=== PATIENT | male | born 1940 | race Caucasian/White ===

== ENCOUNTER 2019-05-27 12:49 | Outpatient (CLI) | payer OTHER | END 2019-05-27 23:59 | disposition home or self-care (01) | LOC: STAR 12:49 → RAD 23:59 | PROVIDERS: ATTEND Neurological Surgery | DX: Z01.818 Encounter for other preprocedural examination (principal); S33.140A Subluxation of L4/L5 lumbar vertebra, initial encounter; M54.17 Radiculopathy, lumbosacral region; M54.16 Radiculopathy, lumbar region; M41.84 Other forms of scoliosis, thoracic region; X58.XXXA Exposure to other specified factors, initial encounter; Y93.89 Activity, other specified; Y92.89 Other specified places as the place of occurrence of the external cause; Y99.8 Other external cause status; R94.31 Abnormal electrocardiogram [ECG] [EKG] | CPT/HCPCS: 72082; 93005 ==

== ENCOUNTER 2019-11-24 14:06 | Emergency (ER) | payer OTHER ==
[~2019-11-24] VITALS: Ht 177.8 cm; Wt 80.0 kg
--- NOTE | 2019-11-24 14:53 | NUR ---
BROUGHT IN [facility] PT HAS HX OF LOW BACK FX W PAIN THAT IS NOT REPAIRABILE AND LOSS OF URINARY CONTROL CATH IN PLACE PT REPORTED HE NO LONGER WANTS TO LIVE WITH THE PAIN AND HIS MEICAL CONDITION AND HAS MEANS TO PILLS CLOTHING REMOVED AND SECURED ERPA TO THE BS PT AO4 AND USES A WALKER COOPERATIVE AND VERY WILLING TO PARTICIPATE IN HIS CARE
[2019-11-24 14:59] LABS: BASOPHILS # (AUTO) 0.04 x10^3/uL (0-0.1); BASOPHILS % (AUTO) 1 % (0-1); EOSINOPHILS # (AUTO) 0.14 x10^3/uL (0-0.4); EOSINOPHILS % (AUTO) 2 % (1-7); LYMPHOCYTES # (AUTO) 1.66 x10^3/uL (1-3.4); LYMPHOCYTES % (AUTO) 21 % (22-44); MD NO; MEAN CORPUSCULAR HGB CONC 33.4 g/dL (33.2-36.2); MEAN CORPUSCULAR VOLUME 101.8 fL (81-97); MEAN PLATELET VOLUME 6.7 fL (7.4-10.4); MONOCYTES # (AUTO) 0.71 x10^3/uL (0.2-0.8); MONOCYTES % (AUTO) 9 % (2-9); NEUTROPHILS # (AUTO) 5.36 x10^3/uL (1.8-6.8); NEUTROPHILS % (AUTO) 68 % (42-75); PLATELET COUNT 298 x10^3/uL (130-400); RED BLOOD COUNT 3.15 x10^6/uL (4.38-5.82); RED CELL DISTRIBUTION WIDTH 13.4 % (9.4-14.8)
[2019-11-24 15:10] LABS: ALBUMIN 3.6 g/dL (3.4-5.0); ANION GAP 6 mmol/L (5-15); CHLORIDE 107 mmol/L (98-107); CREATININE 2.04 mg/dL (0.7-1.3)
[2019-11-24 15:14] LABS: SALICYLATE LEVEL < 1.7 mg/dL (2.8-20.0)
--- NOTE | 2019-11-24 15:32 | NUR ---
VESSEL ENGINEER AT BEDSIDE.
--- NOTE | 2019-11-24 15:52 | NUR ---
PT SITTING ON GURNEY. SMIMS. OBTAINED URINE FROM INDWELLING ADAN THAT WAS PLACE WITHIN THE LAST WEEK. PT STATES URINARY RETENTION. PT IN DIRECT SIGHT OF SITTER.
[2019-11-24 16:05] LABS: MICROSCOPIC AUTO
[2019-11-24 16:16] LABS: AMPHETAMINE SCREEN, URINE Negative (Negative); BARBITURATE SCREEN, URINE Negative (Negative); BENZODIAZEPINE SCREEN, URINE Negative (Negative); CANNABINOID SCREEN, URINE Negative (Negative); COCAINE SCREEN, URINE Negative (Negative); METHADONE SCREEN, URINE Negative (Negative); OPIATE SCREEN, URINE Positive (Negative)
[2019-11-24 16:26] LABS: CULTURE INDICATED? YES
[2019-11-24] MEDS ORDERED: SODIUM CHLORIDE 0.9% 1,000ML IVBOLUS ONE (17:00)
--- NOTE | 2019-11-24 17:11 | NUR ---
IV START. IVF RUNNING PER MAR.
[2019-11-24 18:24] VITALS: BP 112/61
--- NOTE | 2019-11-24 18:26 | NUR ---
BELONGINGS RETURNED TO PT FOR DC.
== END 2019-11-24 18:40 | disposition home or self-care (01) ==
LOC: ED 18:29
DX: R31.29 Other microscopic hematuria (principal); R45.851 Suicidal ideations; E86.0 Dehydration; F32.9 Major depressive disorder, single episode, unspecified; G89.29 Other chronic pain; M54.16 Radiculopathy, lumbar region; I25.2 Old myocardial infarction; Z98.61 Coronary angioplasty status
CPT/HCPCS: 36415; 80048; 80307; 81001; 82040; 85025; 87086; 96360; 99283; J7030